=== PATIENT | male | born 1990 | race Two or more races ===

== ENCOUNTER 2017-04-26 23:46 | Emergency (ER) | payer SELFPAY ==
[~2017-04-26] VITALS: Ht 175.3 cm; Wt 101.6 kg
--- NOTE | 2017-04-26 23:49 | PHYS DOC ---
Adult General Chief Complaint Chief Complaint: ABDOMINAL PAIN HPI HPI Patient is a 26 year old male presenting to the emergency department for evaluation of abdominal pain that has been increasing over the past 2-3 days. Abdominal pain is periumbilical and spreads downwards. He denies any fevers chills nausea vomiting diarrhea or other systemic symptoms. Patient says that he has had issues with a umbilical hernia and his surgeon thinks that he has adhesions. He does not have insurance coverage right now and he is waiting until June to follow with a surgeon to see if he can have surgery to help with the adhesions. Says that he was at work and he was lifting a box and he felt increasing pain in his periumbilical area. 04/17/2017 3 04/17/2017 HYDROCODON-ACETAMINOPHN 10-325 60.0 15 NI GAT [id number] [facility] ([id number]) 0 40.0 [place] 04/10/2017 2 04/09/2017 HYDROCODON-ACETAMINOPHN 10-325 45.0 11 NI GAT [id number] [facility] ([id number]) 0 40.909 [place] 04/02/2017 2 04/02/2017 HYDROCODON-ACETAMINOPHN 10-325 20.0 5 NI GAT [id number] [facility] ([id number]) 0 40.0 [place] 03/19/2017 2 03/19/2017 HYDROCODON-ACETAMINOPHN 10-325 20.0 5 NI GAT [id number] [facility] (1477) 0 40.0 [place] Review of Systems Review of Systems Constitutional: Denies fever or chills [] Eyes: Denies change in visual acuity, redness, or eye pain [] HENT: Denies nasal congestion or sore throat [] Respiratory: Denies cough or shortness of breath [] Cardiovascular: No additional information not addressed in HPI [] GI: + abdominal pain. No nausea, vomiting, bloody stools or diarrhea [] : Denies dysuria or hematuria [] Musculoskeletal: Denies back pain or joint pain [] Integument: Denies rash or skin lesions [] Neurologic: Denies headache, focal weakness or sensory changes [] Current Medications Current Medications Current Medications Medications (Trade) Dose Ordered Sig/Dev Start Time Stop Time Status Last Admin Dose Admin Fentanyl Citrate (Fentanyl 2ml Vial) 75 mcg 1X ONCE 04/27/17 01:15 04/27/17 01:16 DC 04/27/17 01:25 75 MCG Info (Do NOT chart on this entry -- for MONITORING) 1 each PRN DAILY PRN 04/27/17 00:45 04/29/17 00:44 Iohexol (Omnipaque 300 Mg/ml) 75 ml 1X ONCE 04/27/17 00:45 04/27/17 00:46 DC 04/27/17 01:00 75 ML Morphine Sulfate 5 mg 1X ONCE 04/27/17 00:30 04/27/17 00:31 DC 04/27/17 00:34 5 MG Ondansetron HCl (Zofran) 4 mg 1X ONCE 04/27/17 00:30 04/27/17 00:31 DC 04/27/17 00:33 4 MG Promethazine HCl 12.5 mg/Sodium Chloride 50.5 ml @ 101 mls/hr 1X ONCE 04/27/17 01:15 04/27/17 01:44 04/27/17 01:24 101 MLS/HR Sodium Chloride 1,000 ml @ 1,000 mls/hr 1X ONCE 04/27/17 00:15 04/27/17 01:14 DC 04/27/17 00:33 1,000 MLS/HR Allergies Allergies Allergies Coded Allergies Type Severity Reaction Last Updated Verified No Known Drug Allergies 04/27/17 No Physical Exam Physical Exam Constitutional: Well developed, well nourished, no acute distress, non-toxic appearance. [] HENT: Normocephalic, atraumatic, bilateral external ears normal, oropharynx moist, no oral exudates, nose normal. [] Eyes: PERRLA, EOMI, conjunctiva normal, no discharge. [] Neck: Normal range of motion, no tenderness, supple, no stridor. [] Cardiovascular:Heart rate regular rhythm, no murmur [] Lungs & Thorax: Bilateral breath sounds clear to auscultation [] Abdomen: Bowel sounds normal, soft, positive periumbilical and infraumbilical tenderness to palpation, no rebound or guarding, no masses, no pulsatile masses. [] Skin: Warm, dry, no erythema, no rash. [] Back: No tenderness, no CVA tenderness. [] Extremities: No tenderness, no cyanosis, no clubbing, ROM intact, no edema. [] Neurologic: Alert and oriented X 3, normal motor function, normal sensory function, no focal deficits noted. [] Current Patient Data Vital Signs Vital Signs Date Time Temp Pulse Resp B/P (MAP) Pulse Ox O2 Delivery O2 Flow Rate FiO2 04/27/17 01:25 94 04/27/17 00:34 14 Room Air 04/27/17 00:05 98.2 68 124/57 (79) 98.2 Lab Values Laboratory Tests Test 04/27/17 00:12 04/27/17 00:45 White Blood Count 9.6 x10^3/uL (4.0-11.0) Red Blood Count 4.79 x10^6/uL (4.30-5.70) Hemoglobin 15.1 g/dL (13.0-17.5) Hematocrit 43.8 % (39.0-53.0) Mean Corpuscular Volume 91 fL (79-100) Mean Corpuscular Hemoglobin 32 pg (25-35) Mean Corpuscular Hemoglobin Concent 35 g/dL (31-37) Red Cell Distribution Width 13.6 % (11.5-14.5) Platelet Count 279 x10^3/uL (140-400) Neutrophils (%) (Auto) 65 % (31-73) Lymphocytes (%) (Auto) 20 % (24-48) L Monocytes (%) (Auto) 11 % (0-9) H Eosinophils (%) (Auto) 3 % (0-3) Basophils (%) (Auto) 1 % (0-3) Neutrophils # (Auto) 6.2 x10^3uL (1.8-7.7) Lymphocytes # (Auto) 2.0 x10^3/uL (1.0-4.8) Monocytes # (Auto) 1.0 x10^3/uL (0.0-1.1) Eosinophils # (Auto) 0.3 x10^3/uL (0.0-0.7) Basophils # (Auto) 0.1 x10^3/uL (0.0-0.2) Sodium Level 139 mmol/L (136-145) Potassium Level 4.0 mmol/L (3.5-5.1) Chloride Level 101 mmol/L (98-107) Carbon Dioxide Level 29 mmol/L (21-32) Anion Gap 9 (6-14) Blood Urea Nitrogen 15 mg/dL (8-26) Creatinine 0.7 mg/dL (0.7-1.3) Estimated GFR (Cockcroft-Gault) 134.3 BUN/Creatinine Ratio 21 (6-20) H Glucose Level 99 mg/dL (70-99) Calcium Level 9.1 mg/dL (8.5-10.1) Total Bilirubin 0.4 mg/dL (0.2-1.0) Aspartate Amino Transferase (AST) 21 U/L (15-37) Alanine Aminotransferase (ALT) 38 U/L (16-63) Alkaline Phosphatase 84 U/L (46-116) Total Protein 7.6 g/dL (6.4-8.2) Albumin 4.1 g/dL (3.4-5.0) Albumin/Globulin Ratio 1.2 (1.0-1.7) Lipase 158 U/L (73-393) Urine Collection Type Unknown Urine Color Yellow Urine Clarity Clear Urine pH 7.0 Urine Specific [place] 1.020 Urine Protein Negative mg/dL (NEG-TRACE) Urine Glucose (UA) 500 mg/dL (NEG) Urine Ketones (Stick) Negative mg/dL (NEG) Urine Blood Negative (NEG) Urine Nitrite Negative (NEG) Urine Bilirubin Negative (NEG) Urine Urobilinogen Dipstick 1.0 mg/dL (0.2 mg/dL) Urine Leukocyte Esterase Negative (NEG) Urine RBC Occ /HPF (0-2) Urine WBC Occ /HPF (0-4) Urine Squamous Epithelial Cells Occ /LPF Urine Bacteria 0 /HPF (0-FEW) Laboratory Tests 04/27/17 00:12 Laboratory Tests 04/27/17 00:12 EKG EKG [] Radiology/Procedures Radiology/Procedures EXAM: Abdomen and pelvis CT with intravenous contrast. HISTORY: Periumbilical abdominal pain. TECHNIQUE: Computed tomographic images of the abdomen and pelvis were obtained following the administration of 75 cc of Omni 300 intravenous contrast. Multiplanar reformatting was performed. PQRS compliance statement: One or more of the following individualized dose reduction techniques were utilized for this examination: 1. Automated exposure control 2. Adjustment of the mA and/or kV according to patient size 3. Use of iterative reconstruction technique COMPARISON: None. FINDINGS: The lung bases demonstrate no acute finding. A 1.7 cm noncalcified nodule is present within the right lung base, with adjacent cystic structures present. A small cyst is also visualized within the left lung base. The liver, spleen, pancreas, adrenal glands and left kidney demonstrate no focal abnormality. The gallbladder is surgically absent. A 6 mm calculus is present within the lateral right inferior kidney, unclear whether this resides within the lateral aspect of the collecting system versus parenchyma. The GI tract demonstrates no dilated bowel loops to suggest obstruction. Anastomotic suture is seen involving the sigmoid colon, with adjacent surgical clips present. There is postsurgical change suggestive of prior appendectomy. The urinary bladder is grossly unremarkable. No intra-abdominal or pelvic free fluid, free air or significant lymphadenopathy is seen. Aorta is normal in caliber. Overlying soft tissues and visualized osseous structures demonstrate no acute or suspicious finding. A midline ventral abdominal wall scar is suggested in the periumbilical region. There is mild laxity of the midline ventral abdominal wall inferior to the umbilicus without evidence of herniation. IMPRESSION: 1. Nonobstructing right renal calculus. 2. Postsurgical changes of the sigmoid colon. Apparent surgical absence of the appendix. Prior cholecystectomy. Electronically signed by: Stella Pierre MD (04/27/2017 1:14 AM) [id number] DICTATED and SIGNED BY: STELLA PIERRE MD DATE: 04/27/17 0105 Course & Med Decision Making Course & Med Decision Making Will check labs CT and reassess. Pain became worse after the CT scan but then his pain became better again shortly afterwards. His labs and imaging are rather unremarkable and his repeat abdominal exam is benign as well. Patient is able to tolerate by mouth without any difficulty. Given patient appears well with normal vital signs benign physical exam and workup he'll be discharged in stable condition with instructions to follow with primary care provider and surgeon and come back to the ED sooner with worsening pain fevers vomiting or other general concerns. Patient says that he is out of his pain medication and is requesting enough pain medication to get him through the weekend. I will prescribe 10 [place] was told him to follow with his primary care provider on Saturday. Patient aware and agreeable with plan. Jaon Disclaimer Dragon Disclaimer This electronic medical record was generated, in whole or in part, using a voice recognition dictation system. Departure Departure Impression: Primary Impression: Abdominal pain Disposition: HOME, SELF-CARE Condition: GOOD Patient Instructions: Abdominal Pain (Nonspecific) Scripts Hydrocodone/Apap 5-325 (NORCO 5-325 TABLET) 1 Each Tablet 1 TAB PO PRN Q6HRS Y for PAIN, #10 TAB 0 Refills Prov: BLACK MCLEOD DO 04/27/17 Problem Qualifiers Primary Impression: Abdominal pain Abdominal location: lower abdomen, unspecified Qualified Codes: R10.30 - Lower abdominal pain, unspecified BLACK MCLEOD DO Apr 26, 2017 23:49
[2017-04-27] MEDS ORDERED: IV NORMAL SALINE 1000ML BAG 1,000 ML IV ONE (00:15)
[2017-04-27 00:24] LABS: BASO # 0.1 x10^3/uL (0.0-0.2); BASO % 1 % (0-3); EOS % 3 % (0-3); HEMATOCRIT 43.8 % (39.0-53.0); HEMOGLOBIN 15.1 g/dL (13.0-17.5); LYMPH % 20 % (24-48); MEAN CORPUSCULAR HEMOGLOBIN 32 pg (25-35); MEAN CORPUSCULAR HGB CONC 35 g/dL (31-37); MEAN CORPUSCULAR VOLUME 91 fL (79-100); MONO % 11 % (0-9); NEUT % 65 % (31-73); PLATELET COUNT 279 x10^3/uL (140-400); RED BLOOD COUNT 4.79 x10^6/uL (4.30-5.70); RED CELL DISTRIBUTION WIDTH 13.6 % (11.5-14.5); WHITE BLOOD COUNT 9.6 x10^3/uL (4.0-11.0)
[2017-04-27] MEDS ORDERED: ONDANSETRON PF 4 MG/2 ML VIAL. IV ONE (00:30)
[2017-04-27] MEDS ORDERED: MORPHINE SULFATE 10 MG/ML VIAL. IV ONE (00:30)
[2017-04-27 00:35] LABS: CALCIUM 9.1 mg/dL (8.5-10.1); CREATININE 0.7 mg/dL (0.7-1.3); GFR 134.3
[2017-04-27 00:40] LABS: ALBUMIN 4.1 g/dL (3.4-5.0); ALBUMIN/GLOBULIN RATIO 1.2 (1.0-1.7); TOTAL BILIRUBIN 0.4 mg/dL (0.2-1.0); TOTAL PROTEIN 7.6 g/dL (6.4-8.2)
[2017-04-27] MEDS ORDERED: IOHEXOL 300 MG/ML 75 ML VIAL IV ONE (00:45)
[2017-04-27] MEDS ORDERED: CONTRAST GIVEN MC PRN (00:45)
[2017-04-27 00:57] LABS: BILIRUBIN,URINE NEGATIVE (NEG); GLUCOSE,URINE 500 mg/dL (NEG); NITRITE,URINE NEGATIVE (NEG); PROTEIN,URINE NEGATIVE (NEG-TRACE)
[2017-04-27 01:04] LABS: BACTERIA,URINE 0 /HPF (0-FEW); RBC,URINE OCC /HPF (0-2); SQUAMOUS EPITHELIAL CELL,UR OCC /LPF; WBC,URINE OCC /HPF (0-4)
[2017-04-27] MEDS ORDERED: PROMETHAZINE 12.5 MG in IV NORMAL SALINE 50ML 50 ML IV ONE (01:15)
[2017-04-27] MEDS ORDERED: fentaNYL PF VIAL 100 MCG/2 ML VIAL IV ONE (01:15)
--- NOTE | 2017-04-27 01:17 | RAD ---
EXAM: Abdomen and pelvis CT with intravenous contrast. HISTORY: Periumbilical abdominal pain. TECHNIQUE: Computed tomographic images of the abdomen and pelvis were obtained following the administration of 75 cc of Omni 300 intravenous contrast. Multiplanar reformatting was performed. PQRS compliance statement: One or more of the following individualized dose reduction techniques were utilized for this examination: 1. Automated exposure control 2. Adjustment of the mA and/or kV according to patient size 3. Use of iterative reconstruction technique COMPARISON: None. FINDINGS: The lung bases demonstrate no acute finding. A 1.7 cm noncalcified nodule is present within the right lung base, with adjacent cystic structures present. A small cyst is also visualized within the left lung base. The liver, spleen, pancreas, adrenal glands and left kidney demonstrate no focal abnormality. The gallbladder is surgically absent. A 6 mm calculus is present within the lateral right inferior kidney, unclear whether this resides within the lateral aspect of the collecting system versus parenchyma. The GI tract demonstrates no dilated bowel loops to suggest obstruction. Anastomotic suture is seen involving the sigmoid colon, with adjacent surgical clips present. There is postsurgical change suggestive of prior appendectomy. The urinary bladder is grossly unremarkable. No intra-abdominal or pelvic free fluid, free air or significant lymphadenopathy is seen. Aorta is normal in caliber. Overlying soft tissues and visualized osseous structures demonstrate no acute or suspicious finding. A midline ventral abdominal wall scar is suggested in the periumbilical region. There is mild laxity of the midline ventral abdominal wall inferior to the umbilicus without evidence of herniation. IMPRESSION: 1. Nonobstructing right renal calculus. 2. Postsurgical changes of the sigmoid colon. Apparent surgical absence of the appendix. Prior cholecystectomy. Electronically signed by: Aster Cabrera MD (04/27/2017 1:14 AM) [facility]
[2017-04-27] MEDS ORDERED: HYDR-971 PO (01:37)
[2017-04-27 01:45] VITALS: BP 137/71
== END 2017-04-27 01:45 | disposition home or self-care (01) ==
LOC: ER 23:46
DX: R10.33 Periumbilical pain (principal)
CPT/HCPCS: 36415; 74177; 80053; 81001; 83690; 85025; 96361; 96365; 96375; 99285; J2270; J2405; J2550; J3010; J7030; Q9967